=== PATIENT | male | born 1935 | race Caucasian/White ===

== ENCOUNTER 2020-02-19 13:55 | Inpatient (IN) | payer MEDICARE, OTHER ==
--- NOTE | 2020-02-19 15:15 | RAD ---
Exam: Chest one view HISTORY:COVID positive patient. Chest pain. Myocardial infarction. Comparison: 12/03/2016 FINDINGS: Cardiac silhouette:Cardiomegaly. Sternotomy wires. Aorta: Atherosclerosis. Pulmonary vessels: Normal Costophrenic angles: Small bilateral effusions, left greater than right LUNGS: Diminished lung volumes. Patchy interstitial and alveolar opacities. Pneumothorax: None Osseous abnormalities: None IMPRESSION: 1. Congestive heart failure. 2. Superimposed infiltrate cannot be excluded. Continued surveillance is recommended.
[2020-02-19 15:37] LABS: CKMB 5.7 ng/mL (0-6.6)
[2020-02-19 15:38] LABS: Actual Bicarbonate (HCO3a) 17.8 mEq/L (22-28); Analyzer IN Cardio ER; Base Excess (BEa) -7.5 mEq/L (-2.0 to +3.0); CO2 Tension 35.3 mmHg (35.0-45.0); Calcium, Ionized (arterial) 1.13 mmol/L (1.12-1.30); Hemoglobin (Hb) 11.7 g/dL (14.0-18.0); O2 Tension (PaO2), arterial 73.8 mmHg (> 60.0); pH, Arterial 7.32 (7.35-7.45)
[2020-02-19 15:39] LABS: ALV-art Gradient 138.755 (0-20); Puncture Site LRA
[2020-02-19 18:30] VITALS: BMI 29.4
[2020-02-19] MEDS ORDERED: Acetaminophen 325 MG TAB PO PRN (19:13)
[2020-02-19] MEDS ORDERED: Cholecalciferol 1,000 UNITS (25 MCG) TAB PO SCH (19:15)
[2020-02-19] MEDS ORDERED: Ascorbic Acid 500 mg Chewable Tablet PO SCH (19:15)
[2020-02-19] MEDS ORDERED: Melatonin 3 MG TAB PO PRN (19:40)
[2020-02-19] MEDS ORDERED: Albuterol 200 PUFF (6.7GM INHALER) INH PRN (19:41)
[2020-02-19] MEDS ORDERED: Zinc Sulfate 220 MG CAP PO SCH (19:45)
[2020-02-19 20:13] LABS: Troponin I 0.302 ng/mL (< 0.028)
[2020-02-19] MEDS ORDERED: Famotidine 20 MG TAB PO SCH (21:00)
[2020-02-19 21:02] LABS: #Lymphocytes 0.4 thou/uL (1.20-3.40); #Monocytes 0.3 thou/uL (0.11-0.59); #Neutrophils 5.1 thou/uL (1.40-6.50); %Basophils 0.5 % (0.0-1.0); %Lymphocytes 6.8 % (21.0-51.0); %Monocytes 4.7 % (0.0-10.0); %Neutrophils 88.1 % (42.0-75.0); Hemoglobin 11.2 g/dL (14.0-18.0); Mean Corpuscular HGB CONC 32.8 g/dL (32.0-36.0); Mean Corpuscular Hemoglobin 33.8 pg (27.0-31.0); Mean Platelet Volume 9.8 fL (7.4-10.4); Platelet Count 90 thou/uL (130-400); RBC Distribution Width 12.2 % (11.5-14.5); White Blood Cell (WBC) Count 5.8 thou/uL (4.8-10.8)
[2020-02-19 21:13] LABS: Lactic Acid 2.1 mmol/L (0.5-2.2)
[2020-02-19 21:19] LABS: ALT (SGPT) 18 U/L (8-55); AST (SGOT) 24 U/L (5-34); Albumin 3.1 g/dL (3.4-4.8); Alkaline Phosphatase 77 U/L (40-110); Anion Gap 14 mmol/L (10-20); BUN (Urea Nitrogen) 36 mg/dL (8.4-25.7); Bilirubin, Total 1.3 mg/dL (0.2-1.2); CRP (Inflammatory) 14.73 mg/dL (= or < 0.5); Calc. Creatinine Clearance 27 mL/min (70-130); Calcium 7.9 mg/dL (7.8-10.44); Carbon Dioxide 20 mmol/L (23-31); Chloride 104 mmol/L (98-107); Estimated GFR-MDRD 24; Globulin 3.5 g/dL (2.4-3.5); Glucose 158 mg/dL (83-110); Potassium 4.6 mmol/L (3.5-5.1); Protein, Total 6.6 g/dL (5.8-8.1)
[2020-02-19] MEDS: Azithromycin 500 MG in Sodium Chloride 0.9% 250 ML 250 ML IVPB SCH (21:28)
[2020-02-19] MEDS: Heparin 5,000 UNITS/ML VIAL SC SCH (21:28)
[2020-02-19 21:35] LABS: Sodium 133 mmol/L (136-145)
[2020-02-19 22:13] LABS: CKMB 8.1 ng/mL (0-6.6)
--- NOTE | 2020-02-19 22:51 | HP ---
PRIMARY CARE PHYSICIAN: Dr. Zuhair Bang. CHIEF COMPLAINT: Difficulty breathing. HISTORY OF PRESENT ILLNESS: The patient is a very pleasant 84-year-old male who comes from [facility]. Past medical history of chronic kidney disease stage 3, asthma, CAD, CHF, and COPD, who presents to the ER today for difficulty breathing. At his senior living, they have had multiple residents test positive for COVID-19. The patient was actually tested last week and was negative. Today, he was tested once again and was positive. He stated that he started with symptoms yesterday and felt a little short of breath, but today it worsened to where he needed to go to the hospital. He was originally seen at [facility] in [place] and then transferred here due to need for high-flow oxygen. He denies any chest pain, abdominal pain, diarrhea, fever. Denies any positional changes that make the breathing easier or harder. The patient was transferred to our emergency room when the need for oxygen increased. They were unable to do high-flow oxygen where he was. No medications were given in our ER. They were able to wean him off the high-flow oxygen to 4 L. In our ER, they completed a chest x-ray and some lab work. PAST MEDICAL HISTORY: AAA; aortic stenosis; arthritis; asthma; BPH; skin cancer, which was removed; CHF; chronic kidney disease stage 3; COPD; coronary artery disease; hypertension; iron-deficiency anemia; and osteoarthritis. PAST SURGICAL HISTORY: AAA repair, aortic valve replacement, cataracts, CABG, knee replacement, prostate biopsy, and TURP. ALLERGIES: TETANUS. MEDICATIONS: Symbicort 2 puffs twice a day, vitamin B12 at 1000 mcg IM q.60 days, DuoNeb 3 mL three times a day, Lasix 20 mg every 2 days, melatonin 4 mg at night, K-Dur 10 mEq every other day, simvastatin 20 mg at night, doxazosin mesylate 8 mg at night, calcium 600 mg p.o. b.i.d., aspirin 81 mg p.o. daily, Artificial Tears, vitamin B12 1000 mcg IM q.60 days, ferrous sulfate 325 mg p.o. daily, Proscar 5 mg p.o. at night, Protonix 40 mg p.o. daily. SOCIAL HISTORY: The patient lives at [facility]. He occasionally drinks alcohol. No drug use. He was a former smoker. He stopped smoking in 1984. FAMILY HISTORY: Father had a heart attack. REVIEW OF SYSTEMS: All other review of systems negative unless noted in HPI. PHYSICAL EXAMINATION: VITAL SIGNS: Blood pressure 163/73, temperature 98.2, pulse 77, respiratory rate 18, 99% on 4 L. GENERAL: Appears pain-free. Breathing comfortably on 4 L. HEENT: Head is normocephalic and atraumatic. Eyes, extraocular muscles intact. PERRLA. NECK: Normal range of motion. No lymphadenopathy. CARDIOVASCULAR: Regular rate and rhythm. No murmurs, no rubs, no gallops. PULMONARY: Diffuse wheezes. Symmetrical chest rise. ABDOMEN: Soft, nontender. No distention. No masses. NEUROLOGIC: Alert and oriented. SKIN: Warm, dry, and intact. PSYCHIATRIC: Normal affect and behavior. LABS AND IMAGING: Currently awaiting labs at our facility. EKG at previous facility showed sinus tachycardia with a right bundle branch block and first-degree block. Labs show a procalcitonin 0.84. D-dimer 6.07. BNP 398. Glucose 121, BUN 37, creatinine 2.41, sodium 136, potassium 4.4, calcium 8, CRP 140.1, troponin 0.24. White blood cell 6.9, hemoglobin 11.6, hematocrit 35.9, platelets 103. Chest x-ray showed multifocal pneumonia which would be consistent with a viral pneumonia. The patient at the first ER was given dexamethasone 6 mg IV, Bumex 0.5 mg IV, and Zosyn 4.5 g IV along with aspirin 324 mg and albuterol nebulizer treatment. IMPRESSION AND PLAN: 1. The patient has tested positive for COVID-19. He normally does not require oxygen, however, today, he had to be placed on high-flow and is now able to maintain his O2 saturation and comfort on 4 L. We will continue to monitor patient throughout the night. I have consulted Infectious Disease physician along with ordered his IV steroids for the next week along with zinc, vitamin C, and vitamin D. The patient also may have underlying bacterial agent with his viral pneumonia. We will start patient on azithromycin. 2. Hypertension. We will reconcile patient's medications and start him on his home medications. The patient with elevated troponin. We will consult Cardiology. He does not endorse any chest pain and states that his shortness of breath has resolved now with oxygen placement. The patient wishes to be a full code. He states that his surrogate decision makers will be his daughters, Inna and Rubio. 3. The patient has been discussed with Dr. Marcelino. Job ID: [id number]
[2020-02-20 05:07] LABS: #Lymphocytes 0.4 thou/uL (1.20-3.40); #Monocytes 0.3 thou/uL (0.11-0.59); #Neutrophils 3.3 thou/uL (1.40-6.50); %Eosinophils 0.1 % (0.0-10.0); %Lymphocytes 9.9 % (21.0-51.0); %Monocytes 6.8 % (0.0-10.0); %Neutrophils 82.4 % (42.0-75.0); Hemoglobin 10.1 g/dL (14.0-18.0); Mean Corpuscular HGB CONC 31.5 g/dL (32.0-36.0); Mean Corpuscular Hemoglobin 32.6 pg (27.0-31.0); Mean Platelet Volume 9.7 fL (7.4-10.4); Platelet Count 87 thou/uL (130-400); RBC Distribution Width 12.2 % (11.5-14.5); Red Blood Cell (RBC) Count 3.11 mill/uL (4.70-6.10)
[2020-02-20 05:23] LABS: Anion Gap 11 mmol/L (10-20); BUN (Urea Nitrogen) 40 mg/dL (8.4-25.7); Calc. Creatinine Clearance 29 mL/min (70-130); Calcium 7.9 mg/dL (7.8-10.44); Carbon Dioxide 23 mmol/L (23-31); Chloride 106 mmol/L (98-107); Estimated GFR-MDRD 25; Glucose 137 mg/dL (83-110); Potassium 4.8 mmol/L (3.5-5.1); Sodium 135 mmol/L (136-145)
[2020-02-20 07:13] LABS: Bacteria/HPF 4+ HPF (None Seen); Bilirubin Negative (Negative); Blood, Urine 1+ (Negative); Clarity Clear (Clear); Glucose, Urine (Dipstick) Normal (Negative); Ketone, Urine Negative (Negative); Leukocyte 75 Leu/uL (Negative); Nitrite Negative (Negative); Protein, Urine (Dipstick) 10 mg/dL (Neg-Trace); RBC/HPF 0-3 HPF (0-3); Squamous Epithelial 0-3 HPF (0-3); Urobilinogen Normal mg/dL (Less than 2)
[2020-02-20] MEDS: Heparin 5,000 UNITS/ML VIAL SC SCH ×3 (07:46→19:47)
--- NOTE | 2020-02-20 09:09 | CON ---
DATE OF CONSULTATION: 02/20/2020 REASON FOR CONSULTATION: Elevated troponin. HISTORY OF PRESENT ILLNESS: Mr. Montanez is a very pleasant 84-year-old gentleman who I have seen and evaluated in the past. He has a history of CAD, status bypass surgery in addition to TAVR in 2016. He recently tested positive for COVID. He had increased shortness of breath present. He denied chest pain, pressure. He initially required high-flow oxygen. He is now on a nasal cannula and resting comfortably. PAST MEDICAL HISTORY: As described above including chronic kidney disease, arthritis, asthma, skin cancer, congestive heart failure, hypertension, anemia, osteoarthritis, prostate biopsy, TURP. ALLERGIES: TETANUS. MEDICATIONS: Include 1. Symbicort. 2. Lasix. 3. Melatonin. 4. Simvastatin. 5. Aspirin. 6. Iron sulfate. 7. Proscar. 8. Protonix. SOCIAL HISTORY: Currently resides at [facility]. Former tobacco use. REVIEW OF SYSTEMS: A 10-point review of systems is reviewed and is as above, otherwise negative. PHYSICAL EXAMINATION: VITAL SIGNS: Blood pressure 166/72, pulse 81, temperature 97.3. Physical exam deferred due to COVID positive. GENERAL: He is alert and oriented. LABORATORY DATA: Hemoglobin 10.1, hematocrit 32.2, creatinine is 2.48. CK-MB of 8.1. Peak troponin 0.3 and downtrending to 0.2. IMPRESSION: 1. Elevated troponin. 2. COVID positive. 3. Coronary artery disease. 4. Status post bypass surgery. 5. Status post TAVR. RECOMMENDATIONS: Mr. Montanez does have a previous history of underlying coronary artery disease. He has a history of a SNIGER to the LAD with chronic occlusion of the distal LAD. Given his current situation, his elevated troponin is likely due to demand ischemia. He has no current symptoms suggesting angina or unstable angina. At this point, we will continue with current medical therapy. We would recommend monitoring his oxygen saturation in addition to blood pressure and heart rate. Recommend the following CV medications: 1. Simvastatin 20 at bedtime. 2. Aspirin 81 daily. 3. Due to history of asthma, I would recommend avoiding beta-felicita therapy. 4. I will continue heparin. Job ID: [id number]
[2020-02-20] MEDS: Cholecalciferol 1,000 UNITS (25 MCG) TAB PO SCH (09:47)
[2020-02-20] MEDS: Zinc Sulfate 220 MG CAP PO SCH (09:47)
[2020-02-20] MEDS: Aspirin 81 mg Enteric Coated Tablet PO SCH (09:47)
[2020-02-20] MEDS: Ascorbic Acid 500 mg Chewable Tablet PO SCH (09:48)
[2020-02-20] MEDS: Dexamethasone 4 mg/ml Vial SLOW IVP SCH (09:48)
[2020-02-20 11:59] LABS: SARS-CoV-2 MS2 Positive; SARS-CoV-2 N Gene Positive; SARS-CoV-2 S Gene Positive; SARS-CoV-2 by NAA DETECTED (NotDetected); SARS-CoV-2 orf1ab Positive
--- NOTE | 2020-02-20 12:24 | PDOC.HOSPP ---
- Subjective Encounter Date: 02/20/20 Encounter Time: 09:40 Subjective: sitting on bed says he feels better than yesterday no chest pain or palp - Objective Vital Signs & Weight: Vital Signs (12 hours) Temp Pulse Resp BP Pulse Ox 02/20/20 11:40 97.9 F 68 18 126/60 98 02/20/20 09:49 97.7 F 71 20 131/63 93 L 02/20/20 03:28 97.3 F L 81 19 166/72 H 95 Weight Weight 205 lb 4.8 oz I&O: 02/19/20 02/20/20 02/21/20 06:59 06:59 06:59 Intake Total 490 Output Total 675 Balance -185 Result Diagrams: 02/20/20 04:43 02/20/20 04:43 Hospitalist ROS - Medication Medications: Active Medications Generic Name Dose Route Start Last Admin Trade Name Willamq PRN Reason Stop Dose Admin Ascorbic Acid 1,000 mg 02/20/20 09:00 02/20/20 09:48 Vitamin C PO 1,000 mg DAILY TOSHIA Administration Aspirin 81 mg 02/20/20 09:00 02/20/20 09:47 Ecotrin PO 81 mg DAILY TOSHIA Administration Cholecalciferol 1,000 units 02/20/20 09:00 02/20/20 09:47 Vitamin D3 PO 1,000 units DAILY TOSHIA Administration Dexamethasone 6 mg 02/20/20 09:00 02/20/20 09:48 Decadron SLOW IVP 02/28/20 09:01 6 mg DAILY TOSHIA Administration Heparin Sodium (Porcine) 5,000 units 02/19/20 21:00 02/20/20 07:46 Heparin SC Not Given TID TOSHIA Azithromycin 500 mg/ Sodium 250 mls @ 250 mls/hr 02/19/20 20:00 02/19/20 21: 28 Chloride IVPB 250 mls Q24HR TOSHIA Administration Sodium Chloride 10 ml 02/20/20 09:00 02/20/20 09:49 Flush - Normal Saline IVF 10 ml Q12HR TOSHIA Administration Zinc Sulfate 220 mg 02/20/20 09:00 02/20/20 09:47 Zinc Sulfate PO 220 mg DAILY TOSHIA Administration - Exam General Appearance: awake alert Eye: PERRL, anicteric sclera ENT: no oropharyngeal lesions, moist mucosa Neck: supple, no JVD Heart: RRR, no murmur Respiratory: no wheezes, rales, rhonchi Gastrointestinal: soft, non-tender, non-distended, normal bowel sounds Extremities: no cyanosis, 1+ LE edema Neurological: cranial nerve grossly intact, no focal deficits Psychiatric: normal affect, A&O x 3 Hosp A/P (1) Pneumonia due to COVID-19 virus Code(s): U07.1 - COVID-19; J12.89 - OTHER VIRAL PNEUMONIA Status: Acute (2) h/o tavr Status: Chronic (3) H/O aortic valve replacement with porcine valve Code(s): Z95.3 - PRESENCE OF XENOGENIC HEART VALVE Status: Chronic (4) COPD (chronic obstructive pulmonary disease) Status: Chronic Qualifiers: COPD type: chronic bronchitis (5) BPH (benign prostatic hyperplasia) Code(s): N40.0 - BENIGN PROSTATIC HYPERPLASIA WITHOUT LOWER URINRY TRACT SYMP Status: Chronic Qualifiers: Lower urinary tract symptom presence: symptoms absent Qualified Code(s): N40.0 - Benign prostatic hyperplasia without lower urinary tract symptoms (6) CAD (coronary artery disease) Code(s): I25.10 - ATHSCL HEART DISEASE OF [place] CORONARY ARTERY W/O ANG PCTRS Status: Chronic Qualifiers: Coronary Disease-Associated Artery/Lesion type: bypass graft [place] vs. transplanted heart: [place] heart Associated angina: without angina Qualified Code(s): I25.810 - Atherosclerosis of coronary artery bypass graft(s) without angina pectoris (7) CKD (chronic kidney disease) stage 4, GFR 15-29 ml/min Code(s): N18.4 - CHRONIC KIDNEY DISEASE, STAGE 4 (SEVERE) Status: Chronic (8) HLD (hyperlipidemia) Code(s): E78.5 - HYPERLIPIDEMIA, UNSPECIFIED Status: Chronic Qualifiers: (9) HTN (hypertension) Code(s): I10 - ESSENTIAL (PRIMARY) HYPERTENSION Status: Chronic Qualifiers: (10) History of AAA (abdominal aortic aneurysm) repair Code(s): Z98.890 - OTHER SPECIFIED POSTPROCEDURAL STATES Status: Chronic - Plan is on nasal canula, dexamethasone iv, nebs await ID consult continue other meds as above to mobilize in room as tolerated not sure if he is a candidate for plasma given his age and multiple med issues. hemostable
[2020-02-20] MEDS ORDERED: Furosemide 40 MG/4 ML VIAL SLOW IVP SCH (12:30)
--- NOTE | 2020-02-20 15:33 | CON ---
DATE OF CONSULTATION: 02/20/2020 REASON FOR CONSULTATION: COVID pneumonia. HISTORY OF PRESENT ILLNESS: An 84-year-old with history of COPD, osteoarthritis, cardiomyopathy, and hypertension, who developed worsening dyspnea over the past 2 days. He states that he lives in an assisted living institution and apparently multiple residents have tested positive. He had an initial negative test a week before and was tested again positive on the day of admission. The symptoms developed the day before admission and he had blood pressure of 160/70, temperature 98.2, pulse 77, and respirations 18 with 99% on 4 L. He had diffuse wheezing bilaterally, otherwise the exam was not remarkable. Other findings are white cell count 5.8, hemoglobin 11, platelets 90,000, 88% neutrophils, and lymphocytes 400. D-dimer 8.3. A pH of 7.32, pCO2 of 35, and pO2 of 73. His creatinine ranges usually in the baseline from 2.2 up to 3.5, so he is at his baseline at 2.6. Bilirubin 1.3 and transaminases normal. Troponin 0.2. CRP 14. Albumin 3.1. BNP 708. Urinalysis with 7 to 10 wbc's. COVID positive. Chest x-ray with bilateral infiltrates, but mostly the findings consistent with CHF. He is currently on 4 L and saturating at 98. He is awake, sitting on the bed. He is oriented. No headaches. No sore throat. Dyspnea has improved markedly since admission. No abdominal pain or diarrhea. No genitourinary symptoms. No vomiting. Some anorexia. MEDICAL HISTORY: 1. Aortic stenosis. 2. Abdominal aortic aneurysm. 3. Arthritis. 4. Asthma. 5. BPH. 6. COPD. 7. CKD, stage 3 to 4. 8. Hypertension. 9. Coronary artery disease. SURGICAL HISTORY: 1. AAA repair. 2. Aortic valve replacement. 3. Bypass graft surgery. 4. Knee replacement. 5. Prostate biopsy. 6. TURP. ALLERGIES: TETANUS VACCINE. SOCIAL HISTORY: Lives in the assisted living facility, [facility]. Drinks occasionally. No drug use. Quit smoking more than 30 years ago. He is a . FAMILY HISTORY: Coronary artery disease. PHYSICAL EXAMINATION: VITAL SIGNS: At the moment, we have temperature 97.9, blood pressure 120/60, pulse 68, respirations 18 to 20, and O2 saturation 98 on 4 L. SKIN: Not remarkable. Peripheral IV access. He is voiding in the urinal. No lymphadenopathy. HEENT: Ocular movements conjugate. Oral cavity with a very few remaining teeth. NECK: No jugular vein distention. LUNGS: Expiratory wheezing, particularly on the right side, and diminished breath sounds on the left. HEART: S1 and S2. Regular rate with a soft aortic murmur. ABDOMEN: Soft, not distended or tender. No ascites. No bladder distention. EXTREMITIES: No joint inflammatory activity. No edema. Pulses 1+ in dorsalis pedis. Moves all extremities. NEUROLOGIC: He is oriented. Follows commands. Recollection good. Speech is normal. LABORATORY DATA: Latest labs: White cell count 4.0, hemoglobin 10, platelets 87, and 82% neutrophils. Creatinine 2.48. He is currently on azithromycin and Decadron. ASSESSMENT: 1. Chronic obstructive pulmonary disease. 2. Cardiomyopathy. 3. COVID infection with requirement for high level of O2 supplementation. PLAN: We will go ahead and write for convalescent plasma since he is not eligible for remdesivir. Continue Decadron. Monitor inflammatory markers and D-dimer. Heparin t.i.d. Job ID: [id number]
[2020-02-20] MEDS: Mometasone 200 MCG/Formoterol 5 MCG 120 PUFF INHALER INH SCH (18:27)
[2020-02-20] MEDS ORDERED: Non-Formulary Item 1 EACH (Budesonide-Formoterol [Symbicort 160-4.5] 2 PUFF) INH SCH (18:30)
[2020-02-20] MEDS: Azithromycin 500 MG in Sodium Chloride 0.9% 250 ML 250 ML IVPB SCH (19:47)
[2020-02-20] MEDS: Melatonin 3 MG TAB PO SCH (19:48)
[2020-02-20] MEDS: Finasteride 5 MG TAB PO SCH (19:48)
[2020-02-20] MEDS: Doxazosin Mesylate 4 MG TAB PO SCH (19:48)
[2020-02-20] MEDS: Atorvastatin Calcium 10 MG TAB PO SCH (19:48)
[2020-02-20] MEDS: Montelukast Sodium 10 mg Tablet PO SCH (19:48)
[2020-02-20] MEDS ORDERED: Famotidine 20 MG TAB PO SCH (21:00)
[2020-02-20] MEDS ORDERED: Simvastatin 20 MG TAB PO SCH ×2 (21:00)
[2020-02-20] MEDS ORDERED: DOXAZOSIN MESYLATE 8 MG PO SCH (21:00)
[2020-02-21 05:41] LABS: #Lymphocytes 0.4 thou/uL (1.20-3.40); #Monocytes 0.2 thou/uL (0.11-0.59); #Neutrophils 3.3 thou/uL (1.40-6.50); %Basophils 0.1 % (0.0-1.0); %Lymphocytes 11.2 % (21.0-51.0); %Monocytes 4.7 % (0.0-10.0); Hemoglobin 9.8 g/dL (14.0-18.0); Mean Corpuscular HGB CONC 32.3 g/dL (32.0-36.0); Mean Corpuscular Hemoglobin 33.5 pg (27.0-31.0); Mean Platelet Volume 9.7 fL (7.4-10.4); Platelet Count 107 thou/uL (130-400); RBC Distribution Width 12.2 % (11.5-14.5); Red Blood Cell (RBC) Count 2.93 mill/uL (4.70-6.10); White Blood Cell (WBC) Count 3.9 thou/uL (4.8-10.8)
[2020-02-21] MEDS: Mometasone 200 MCG/Formoterol 5 MCG 120 PUFF INHALER INH SCH ×2 (05:53→17:33)
[2020-02-21 06:00] LABS: Anion Gap 14 mmol/L (10-20); BUN (Urea Nitrogen) 53 mg/dL (8.4-25.7); Calc. Creatinine Clearance 27 mL/min (70-130); Calcium 7.8 mg/dL (7.8-10.44); Carbon Dioxide 23 mmol/L (23-31); Chloride 104 mmol/L (98-107); Estimated GFR-MDRD 23; Glucose 129 mg/dL (83-110); Potassium 4.6 mmol/L (3.5-5.1); Sodium 136 mmol/L (136-145)
[2020-02-21 06:02] LABS: CRP (Inflammatory) 9.08 mg/dL (= or < 0.5)
[2020-02-21] MEDS: Zinc Sulfate 220 MG CAP PO SCH (07:29)
[2020-02-21] MEDS: Aspirin 81 mg Enteric Coated Tablet PO SCH (07:29)
[2020-02-21] MEDS: Cholecalciferol 1,000 UNITS (25 MCG) TAB PO SCH (07:29)
[2020-02-21] MEDS: Ascorbic Acid 500 mg Chewable Tablet PO SCH (07:30)
[2020-02-21] MEDS: Ferrous Sulfate 325 MG TAB PO SCH (07:30)
[2020-02-21] MEDS: Dexamethasone 4 mg/ml Vial SLOW IVP SCH (07:30)
[2020-02-21] MEDS: Heparin 5,000 UNITS/ML VIAL SC SCH ×2 (07:31→20:51)
[2020-02-21] MEDS ORDERED: Non-Formulary Item 1 EACH (Ferrous Sulfate [Ferrous Sulfate] 325 MG) PO SCH (09:00)
[2020-02-21] MEDS ORDERED: Furosemide 20 MG TAB PO SCH (09:00)
--- NOTE | 2020-02-21 11:42 | PDOC.HOSPP ---
- Subjective Encounter Date: 02/21/20 Encounter Time: 10:10 Subjective: awake, no sob, feels better is on higher Oxygen 5L by NC this am - Objective Vital Signs & Weight: Vital Signs (12 hours) Temp Pulse Pulse Resp BP BP BP 02/21/20 07:40 97.7 F 85 20 133/58 L 02/21/20 05:43 97.6 F 66 21 H 119/58 L 02/21/20 05:28 97.6 F 68 20 128/60 02/21/20 05:13 97.6 F 71 22 H 118/63 02/21/20 04:10 97.6 F 84 24 H 145/70 H Pulse Ox 02/21/20 07:40 91 L 02/21/20 05:43 100 02/21/20 05:28 02/21/20 05:13 02/21/20 04:10 93 L Weight Weight 205 lb 4.8 oz I&O: 02/20/20 02/21/20 02/22/20 06:59 06:59 06:59 Intake Total 490 1360 Output Total 675 700 Balance -185 660 Result Diagrams: 02/21/20 05:03 02/21/20 05:03 Hospitalist ROS - Medication Medications: Active Medications Generic Name Dose Route Start Last Admin Trade Name Willamq PRN Reason Stop Dose Admin Aspirin 81 mg 02/20/20 09:00 02/21/20 07:29 Ecotrin PO 81 mg DAILY TOSHIA Administration Atorvastatin Calcium 10 mg 02/20/20 21:00 02/20/20 19:48 Lipitor PO 10 mg HS TOSHIA Administration Dexamethasone 6 mg 02/20/20 09:00 02/21/20 07:30 Decadron SLOW IVP 02/28/20 09:01 6 mg DAILY TOSHIA Administration Doxazosin Mesylate 8 mg 02/20/20 21:00 02/20/20 19:48 Cardura PO 8 mg HS TOSHIA Administration Ferrous Sulfate 325 mg 02/21/20 09:00 02/21/20 07:30 Feosol PO 325 mg DAILY TOSHIA Administration Finasteride 5 mg 02/20/20 21:00 02/20/20 19:48 Proscar PO 5 mg HS TOSHIA Administration Heparin Sodium (Porcine) 5,000 units 02/20/20 21:00 02/21/20 07:31 Heparin SC 5,000 units BID TOSHIA Administration Melatonin 3 mg 02/20/20 21:00 02/20/20 19:48 Melatonin PO 3 mg HS TOSHIA Administration Mometasone Furoate/Formoterol Fumar 2 puff 02/20/20 18:30 02/21/20 05:53 Dulera 200 Mcg/5 Mcg Inhaler INH 2 puff BID-RT TOSHIA Administration Montelukast Sodium 10 mg 02/20/20 21:00 02/20/20 19:48 Singulair PO 10 mg HS TOSHIA Administration Pantoprazole Sodium 40 mg 02/21/20 07:30 02/21/20 07:30 Protonix PO 40 mg DAILY-AC TOSHIA Administration Sodium Chloride 10 ml 02/20/20 09:00 02/21/20 07:31 Flush - Normal Saline IVF 10 ml Q12HR TOSHIA Administration - Exam General Appearance: awake alert Eye: PERRL, anicteric sclera ENT: no oropharyngeal lesions, moist mucosa Neck: supple, no JVD Heart: RRR, no murmur Respiratory: no wheezes, rales, rhonchi Gastrointestinal: soft, non-tender, non-distended, normal bowel sounds Extremities: no cyanosis, 1+ LE edema Neurological: cranial nerve grossly intact, no focal deficits Psychiatric: normal affect, A&O x 3 Hosp A/P (1) Pneumonia due to COVID-19 virus Code(s): U07.1 - COVID-19; J12.89 - OTHER VIRAL PNEUMONIA Status: Acute (2) h/o tavr Status: Chronic (3) H/O aortic valve replacement with porcine valve Code(s): Z95.3 - PRESENCE OF XENOGENIC HEART VALVE Status: Chronic (4) COPD (chronic obstructive pulmonary disease) Status: Chronic Qualifiers: COPD type: chronic bronchitis (5) BPH (benign prostatic hyperplasia) Code(s): N40.0 - BENIGN PROSTATIC HYPERPLASIA WITHOUT LOWER URINRY TRACT SYMP Status: Chronic Qualifiers: Lower urinary tract symptom presence: symptoms absent Qualified Code(s): N40.0 - Benign prostatic hyperplasia without lower urinary tract symptoms (6) CAD (coronary artery disease) Code(s): I25.10 - ATHSCL HEART DISEASE OF [place] CORONARY ARTERY W/O ANG PCTRS Status: Chronic Qualifiers: Coronary Disease-Associated Artery/Lesion type: bypass graft [place] vs. transplanted heart: [place] heart Associated angina: without angina Qualified Code(s): I25.810 - Atherosclerosis of coronary artery bypass graft(s) without angina pectoris (7) CKD (chronic kidney disease) stage 4, GFR 15-29 ml/min Code(s): N18.4 - CHRONIC KIDNEY DISEASE, STAGE 4 (SEVERE) Status: Chronic (8) HLD (hyperlipidemia) Code(s): E78.5 - HYPERLIPIDEMIA, UNSPECIFIED Status: Chronic Qualifiers: (9) HTN (hypertension) Code(s): I10 - ESSENTIAL (PRIMARY) HYPERTENSION Status: Chronic Qualifiers: (10) History of AAA (abdominal aortic aneurysm) repair Code(s): Z98.890 - OTHER SPECIFIED POSTPROCEDURAL STATES Status: Chronic - Plan is on nasal canula, dexamethasone iv, nebs, recieved 1 u of convalescent plasma 02/20/2020 has h/o nephrectomy, now gilson/ckd, mild chf exac with diastolic dysfunction continue other meds as above to mobilize in room as tolerated, PT eval d/w daughter over phone and gave full updates hemostable His Oxygen requirements have gone up, he got 1 dose lasix iv yest with slight worsoning of renal function. continue to monitor
[2020-02-21] MEDS: Doxazosin Mesylate 4 MG TAB PO SCH (20:50)
[2020-02-21] MEDS: Finasteride 5 MG TAB PO SCH (20:51)
[2020-02-21] MEDS: Melatonin 3 MG TAB PO SCH (20:51)
[2020-02-21] MEDS: Montelukast Sodium 10 mg Tablet PO SCH (20:51)
[2020-02-21] MEDS: Atorvastatin Calcium 10 MG TAB PO SCH (20:51)
[2020-02-22 05:31] LABS: #Lymphocytes 0.5 thou/uL (1.20-3.40); #Monocytes 0.3 thou/uL (0.11-0.59); #Neutrophils 3.2 thou/uL (1.40-6.50); %Basophils 1.1 % (0.0-1.0); %Eosinophils 0.3 % (0.0-10.0); %Lymphocytes 12.9 % (21.0-51.0); %Monocytes 6.3 % (0.0-10.0); %Neutrophils 79.5 % (42.0-75.0); Hemoglobin 9.2 g/dL (14.0-18.0); Mean Corpuscular HGB CONC 33.1 g/dL (32.0-36.0); Mean Corpuscular Hemoglobin 33.8 pg (27.0-31.0); Mean Platelet Volume 9.8 fL (7.4-10.4); Platelet Count 106 thou/uL (130-400); RBC Distribution Width 12.1 % (11.5-14.5); Red Blood Cell (RBC) Count 2.71 mill/uL (4.70-6.10)
[2020-02-22] MEDS: Mometasone 200 MCG/Formoterol 5 MCG 120 PUFF INHALER INH SCH ×2 (05:36→17:13)
[2020-02-22 05:50] LABS: Anion Gap 11 mmol/L (10-20); BUN (Urea Nitrogen) 65 mg/dL (8.4-25.7); Calc. Creatinine Clearance 27 mL/min (70-130); Calcium 7.8 mg/dL (7.8-10.44); Carbon Dioxide 25 mmol/L (23-31); Chloride 107 mmol/L (98-107); Estimated GFR-MDRD 23; Glucose 143 mg/dL (83-110); Potassium 4.6 mmol/L (3.5-5.1); Sodium 138 mmol/L (136-145)
[2020-02-22] MEDS: Ferrous Sulfate 325 MG TAB PO SCH (08:36)
[2020-02-22] MEDS: Heparin 5,000 UNITS/ML VIAL SC SCH ×2 (08:36→20:03)
[2020-02-22] MEDS: Aspirin 81 mg Enteric Coated Tablet PO SCH (08:36)
[2020-02-22] MEDS: Dexamethasone 4 mg/ml Vial SLOW IVP SCH (08:37)
--- NOTE | 2020-02-22 10:08 | PDOC.HOSPP ---
- Subjective Encounter Date: 02/22/20 Encounter Time: 08:30 Subjective: awake, has cough, no sob, is on nasal canula - Objective Vital Signs & Weight: Vital Signs (12 hours) Temp Pulse Resp BP BP Pulse Ox 02/22/20 08:00 98.9 F 64 22 H 136/76 93 L 02/22/20 05:41 98.0 F 66 20 125/60 97 Weight Weight 205 lb 6.4 oz I&O: 02/21/20 02/22/20 02/23/20 06:59 06:59 06:59 Intake Total 1360 970 Output Total 700 100 Balance 660 870 Result Diagrams: 02/22/20 05:18 02/22/20 05:18 Hospitalist ROS - Medication Medications: Active Medications Generic Name Dose Route Start Last Admin Trade Name Freq PRN Reason Stop Dose Admin Aspirin 81 mg 02/20/20 09:00 02/22/20 08:36 Ecotrin PO 81 mg DAILY TOSHIA Administration Atorvastatin Calcium 10 mg 02/20/20 21:00 02/21/20 20:51 Lipitor PO 10 mg HS TOSHIA Administration Dexamethasone 6 mg 02/20/20 09:00 02/22/20 08:37 Decadron SLOW IVP 02/28/20 09:01 6 mg DAILY TOSHIA Administration Doxazosin Mesylate 8 mg 02/20/20 21:00 02/21/20 20:50 Cardura PO 8 mg HS TOSHIA Administration Ferrous Sulfate 325 mg 02/21/20 09:00 02/22/20 08:36 Feosol PO 325 mg DAILY TOSHIA Administration Finasteride 5 mg 02/20/20 21:00 02/21/20 20:51 Proscar PO 5 mg HS TOSHIA Administration Heparin Sodium (Porcine) 5,000 units 02/20/20 21:00 02/22/20 08:36 Heparin SC 5,000 units BID TOSHIA Administration Melatonin 3 mg 02/20/20 21:00 02/21/20 20:51 Melatonin PO 3 mg HS TOSHIA Administration Mometasone Furoate/Formoterol Fumar 2 puff 02/20/20 18:30 02/22/20 05:36 Dulera 200 Mcg/5 Mcg Inhaler INH 2 puff BID-RT TOSHIA Administration Montelukast Sodium 10 mg 02/20/20 21:00 02/21/20 20:51 Singulair PO 10 mg HS TOSHIA Administration Pantoprazole Sodium 40 mg 02/21/20 07:30 02/22/20 08:36 Protonix PO 40 mg DAILY-AC TOSHIA Administration Sodium Chloride 10 ml 02/20/20 09:00 02/22/20 09:10 Flush - Normal Saline IVF 10 ml Q12HR TOSHIA Administration - Exam General Appearance: awake alert, ill appearing Eye: PERRL, anicteric sclera ENT: no oropharyngeal lesions, dry oral mucosa Neck: supple, no JVD Heart: RRR, no murmur Respiratory: no wheezes, rales, rhonchi Gastrointestinal: soft, non-tender, non-distended, normal bowel sounds Extremities: no cyanosis, 1+ LE edema Neurological: cranial nerve grossly intact, no focal deficits Psychiatric: A&O x 3 Hosp A/P (1) Acute respiratory failure with hypoxia Code(s): J96.01 - ACUTE RESPIRATORY FAILURE WITH HYPOXIA Status: Acute (2) Pneumonia due to COVID-19 virus Code(s): U07.1 - COVID-19; J12.89 - OTHER VIRAL PNEUMONIA Status: Acute (3) h/o tavr Status: Chronic (4) H/O aortic valve replacement with porcine valve Code(s): Z95.3 - PRESENCE OF XENOGENIC HEART VALVE Status: Chronic (5) COPD (chronic obstructive pulmonary disease) Status: Chronic Qualifiers: COPD type: chronic bronchitis (6) BPH (benign prostatic hyperplasia) Code(s): N40.0 - BENIGN PROSTATIC HYPERPLASIA WITHOUT LOWER URINRY TRACT SYMP Status: Chronic Qualifiers: Lower urinary tract symptom presence: symptoms absent Qualified Code(s): N40.0 - Benign prostatic hyperplasia without lower urinary tract symptoms (7) CAD (coronary artery disease) Code(s): I25.10 - ATHSCL HEART DISEASE OF [place] CORONARY ARTERY W/O ANG PCTRS Status: Chronic Qualifiers: Coronary Disease-Associated Artery/Lesion type: bypass graft [place] vs. transplanted heart: [place] heart Associated angina: without angina Qualified Code(s): I25.810 - Atherosclerosis of coronary artery bypass graft(s) without angina pectoris (8) CKD (chronic kidney disease) stage 4, GFR 15-29 ml/min Code(s): N18.4 - CHRONIC KIDNEY DISEASE, STAGE 4 (SEVERE) Status: Chronic (9) HLD (hyperlipidemia) Code(s): E78.5 - HYPERLIPIDEMIA, UNSPECIFIED Status: Chronic Qualifiers: (10) HTN (hypertension) Code(s): I10 - ESSENTIAL (PRIMARY) HYPERTENSION Status: Chronic Qualifiers: (11) History of AAA (abdominal aortic aneurysm) repair Code(s): Z98.890 - OTHER SPECIFIED POSTPROCEDURAL STATES Status: Chronic - Plan is on nasal canula, dexamethasone iv, nebs, recieved 1 u of convalescent plasma 02/20/2020 has h/o nephrectomy, now gilson/ckd, mild chf exac with diastolic dysfunction continue other meds as above to mobilize in room as tolerated, PT eval d/w daughter over phone and gave full updates 02/21/2020 hemostable His Oxygen requirements have gone up, he got 1 dose lasix iv on 02/20/2020 with slight worsoning of renal function. continue to monitor PT to mobilize as tolerated
[2020-02-22] MEDS: Doxazosin Mesylate 4 MG TAB PO SCH (20:02)
[2020-02-22] MEDS: Finasteride 5 MG TAB PO SCH (20:02)
[2020-02-22] MEDS: Melatonin 3 MG TAB PO SCH (20:03)
[2020-02-22] MEDS: Montelukast Sodium 10 mg Tablet PO SCH (20:03)
[2020-02-22] MEDS: Atorvastatin Calcium 10 MG TAB PO SCH (20:03)
[2020-02-23] MEDS: Mometasone 200 MCG/Formoterol 5 MCG 120 PUFF INHALER INH SCH ×2 (07:38→18:06)
[2020-02-23] MEDS: Dexamethasone 4 mg/ml Vial SLOW IVP SCH (07:53)
[2020-02-23] MEDS: Aspirin 81 mg Enteric Coated Tablet PO SCH (07:53)
[2020-02-23] MEDS: Heparin 5,000 UNITS/ML VIAL SC SCH ×2 (07:56→19:46)
[2020-02-23] MEDS: Ferrous Sulfate 325 MG TAB PO SCH (07:56)
--- NOTE | 2020-02-23 14:25 | PDOC.HOSPP ---
- Subjective Encounter Date: 02/23/20 Encounter Time: 09:45 Subjective: no sob, feels better, is on nasal canula 2 lts now mobilizes in room has worked with PT and amb around 20ft, feels exhausted after therapy - Objective Vital Signs & Weight: Vital Signs (12 hours) Temp Pulse Resp BP BP Pulse Ox Pulse Ox 02/23/20 11:25 97.9 F 65 20 153/65 H 98 02/23/20 10:14 89 L 02/23/20 08:07 97.9 F 68 20 148/63 H 95 02/23/20 07:38 70 20 95 02/23/20 04:34 92 L 02/23/20 04:00 98.7 F 70 22 H 122/57 L 20 L Pulse Ox Pulse Ox 02/23/20 11:25 02/23/20 10:14 97 95 02/23/20 08:07 02/23/20 07:38 02/23/20 04:34 02/23/20 04:00 Weight Weight 204 lb 1 oz I&O: 02/22/20 02/23/20 02/24/20 06:59 06:59 06:59 Intake Total 970 1247 Output Total 100 440 Balance 870 807 Result Diagrams: 02/22/20 05:18 02/22/20 05:18 Hospitalist ROS - Medication Medications: Active Medications Generic Name Dose Route Start Last Admin Trade Name Siria PRN Reason Stop Dose Admin Aspirin 81 mg 02/20/20 09:00 02/23/20 07:53 Ecotrin PO 81 mg DAILY TOSHIA Administration Atorvastatin Calcium 10 mg 02/20/20 21:00 02/22/20 20:03 Lipitor PO 10 mg HS TOSHIA Administration Dexamethasone 6 mg 02/20/20 09:00 02/23/20 07:53 Decadron SLOW IVP 02/28/20 09:01 6 mg DAILY TOSHIA Administration Doxazosin Mesylate 8 mg 02/20/20 21:00 02/22/20 20:02 Cardura PO 8 mg HS TOSHIA Administration Ferrous Sulfate 325 mg 02/21/20 09:00 02/23/20 07:56 Feosol PO 325 mg DAILY TOSHIA Administration Finasteride 5 mg 02/20/20 21:00 02/22/20 20:02 Proscar PO 5 mg HS TOSHIA Administration Heparin Sodium (Porcine) 5,000 units 02/20/20 21:00 02/23/20 07:56 Heparin SC 5,000 units BID TOSHIA Administration Melatonin 3 mg 02/20/20 21:00 02/22/20 20:03 Melatonin PO 3 mg HS TOSHIA Administration Mometasone Furoate/Formoterol Fumar 2 puff 02/20/20 18:30 02/23/20 07:38 Dulera 200 Mcg/5 Mcg Inhaler INH 2 puff BID-RT TOSHIA Administration Montelukast Sodium 10 mg 02/20/20 21:00 02/22/20 20:03 Singulair PO 10 mg HS TOSHIA Administration Pantoprazole Sodium 40 mg 02/21/20 07:30 02/23/20 07:53 Protonix PO 40 mg DAILY-AC TOSHIA Administration Sodium Chloride 10 ml 02/20/20 09:00 02/23/20 07:58 Flush - Normal Saline IVF 10 ml Q12HR TOSHIA Administration - Exam General Appearance: awake alert Eye: PERRL, anicteric sclera ENT: no oropharyngeal lesions, moist mucosa Neck: supple, no JVD Heart: RRR, no gallops Respiratory: no wheezes, rales, rhonchi Gastrointestinal: soft, non-tender, non-distended, normal bowel sounds Extremities: no cyanosis, 1+ LE edema Neurological: cranial nerve grossly intact, no focal deficits Hosp A/P (1) Acute respiratory failure with hypoxia Code(s): J96.01 - ACUTE RESPIRATORY FAILURE WITH HYPOXIA Status: Acute (2) Pneumonia due to COVID-19 virus Code(s): U07.1 - COVID-19; J12.89 - OTHER VIRAL PNEUMONIA Status: Acute (3) h/o tavr Status: Chronic (4) H/O aortic valve replacement with porcine valve Code(s): Z95.3 - PRESENCE OF XENOGENIC HEART VALVE Status: Chronic (5) COPD (chronic obstructive pulmonary disease) Status: Chronic Qualifiers: COPD type: chronic bronchitis (6) BPH (benign prostatic hyperplasia) Code(s): N40.0 - BENIGN PROSTATIC HYPERPLASIA WITHOUT LOWER URINRY TRACT SYMP Status: Chronic Qualifiers: Lower urinary tract symptom presence: symptoms absent Qualified Code(s): N40.0 - Benign prostatic hyperplasia without lower urinary tract symptoms (7) CAD (coronary artery disease) Code(s): I25.10 - ATHSCL HEART DISEASE OF [place] CORONARY ARTERY W/O ANG PCTRS Status: Chronic Qualifiers: Coronary Disease-Associated Artery/Lesion type: bypass graft [place] vs. transplanted heart: [place] heart Associated angina: without angina Qualified Code(s): I25.810 - Atherosclerosis of coronary artery bypass graft(s) without angina pectoris (8) CKD (chronic kidney disease) stage 4, GFR 15-29 ml/min Code(s): N18.4 - CHRONIC KIDNEY DISEASE, STAGE 4 (SEVERE) Status: Chronic (9) HLD (hyperlipidemia) Code(s): E78.5 - HYPERLIPIDEMIA, UNSPECIFIED Status: Chronic Qualifiers: (10) HTN (hypertension) Code(s): I10 - ESSENTIAL (PRIMARY) HYPERTENSION Status: Chronic Qualifiers: (11) History of AAA (abdominal aortic aneurysm) repair Code(s): Z98.890 - OTHER SPECIFIED POSTPROCEDURAL STATES Status: Chronic - Plan is on nasal canula, dexamethasone iv, nebs, recieved 1 u of convalescent plasma 02/20/2020 has h/o nephrectomy, now gilson/ckd, mild chf exac with diastolic dysfunction continue other meds as above to mobilize in room as tolerated d/w daughter over phone and gave full updates 02/23/2020, [facility] with Covid patients. hemostable He got 1 dose lasix iv on 02/20/2020 with slight worsoning of renal function. continue to monitor PT to mobilize as tolerated May dc anytime if rehab or swing bed will accept him.
[2020-02-23] MEDS: Montelukast Sodium 10 mg Tablet PO SCH (19:45)
[2020-02-23] MEDS: Doxazosin Mesylate 4 MG TAB PO SCH (19:45)
[2020-02-23] MEDS: Melatonin 3 MG TAB PO SCH (19:45)
[2020-02-23] MEDS: Atorvastatin Calcium 10 MG TAB PO SCH (19:45)
[2020-02-23] MEDS: Finasteride 5 MG TAB PO SCH (19:46)
[2020-02-24] MEDS: Aspirin 81 mg Enteric Coated Tablet PO SCH (08:51)
[2020-02-24] MEDS: Heparin 5,000 UNITS/ML VIAL SC SCH ×2 (08:51→20:06)
[2020-02-24] MEDS: Ferrous Sulfate 325 MG TAB PO SCH (08:51)
[2020-02-24] MEDS: Dexamethasone 4 mg/ml Vial SLOW IVP SCH (08:51)
[2020-02-24] MEDS: Mometasone 200 MCG/Formoterol 5 MCG 120 PUFF INHALER INH SCH ×2 (08:53→17:50)
--- NOTE | 2020-02-24 12:34 | PDOC.HOSPP ---
- Subjective Encounter Date: 02/24/20 Encounter Time: 10:00 Subjective: alert, awake, responds well to verbal stimuli has sob, spo2 is 94% on 2 lts nasal canula no chest pain or palp is sitting up in bed - Objective Vital Signs & Weight: Vital Signs (12 hours) Temp Pulse Resp BP BP Pulse Ox 02/24/20 12:05 97.8 F 67 22 H 142/74 H 95 02/24/20 09:05 98.1 F 64 23 H 146/71 H 94 L 02/24/20 04:00 98.5 F 63 20 97/50 L 97 Weight Weight 204 lb 1 oz I&O: 02/23/20 02/24/20 02/25/20 06:59 06:59 06:59 Intake Total 1247 920 Output Total 440 Balance 807 920 Result Diagrams: 02/22/20 05:18 02/22/20 05:18 Hospitalist ROS - Medication Medications: Active Medications Generic Name Dose Route Start Last Admin Trade Name Freq PRN Reason Stop Dose Admin Acetaminophen 650 mg 02/19/20 19:13 02/23/20 18:44 Tylenol PO 650 mg Q4H PRN Administration Headache/Fever/Mild Pain (1-3) Aspirin 81 mg 02/20/20 09:00 02/24/20 08:51 Ecotrin PO 81 mg DAILY TOSHIA Administration Atorvastatin Calcium 10 mg 02/20/20 21:00 02/23/20 19:45 Lipitor PO 10 mg HS TOSHIA Administration Dexamethasone 6 mg 02/20/20 09:00 02/24/20 08:51 Decadron SLOW IVP 02/28/20 09:01 6 mg DAILY TOSHIA Administration Doxazosin Mesylate 8 mg 02/20/20 21:00 02/23/20 19:45 Cardura PO 8 mg HS TOSHIA Administration Ferrous Sulfate 325 mg 02/21/20 09:00 02/24/20 08:51 Feosol PO 325 mg DAILY TOSHIA Administration Finasteride 5 mg 02/20/20 21:00 02/23/20 19:46 Proscar PO 5 mg HS TOSHIA Administration Heparin Sodium (Porcine) 5,000 units 02/20/20 21:00 02/24/20 08:51 Heparin SC 5,000 units BID TOSHIA Administration Melatonin 3 mg 02/20/20 21:00 02/23/20 19:45 Melatonin PO 3 mg HS TOSHIA Administration Mometasone Furoate/Formoterol Fumar 2 puff 02/20/20 18:30 02/23/20 18:06 Dulera 200 Mcg/5 Mcg Inhaler INH 2 puff BID-RT TOSHIA Administration Montelukast Sodium 10 mg 02/20/20 21:00 02/23/20 19:45 Singulair PO 10 mg HS TOSHIA Administration Pantoprazole Sodium 40 mg 02/21/20 07:30 02/24/20 08:51 Protonix PO 40 mg DAILY-AC TOSHIA Administration Sodium Chloride 10 ml 02/20/20 09:00 02/24/20 08:51 Flush - Normal Saline IVF 10 ml Q12HR TOSHIA Administration - Exam General Appearance: awake alert Eye: PERRL, anicteric sclera ENT: no oropharyngeal lesions, moist mucosa Neck: supple, no JVD Heart: RRR, no murmur Respiratory: no wheezes, no rales, rhonchi Gastrointestinal: soft, non-tender, non-distended, normal bowel sounds Extremities: no cyanosis, 1+ LE edema Neurological: cranial nerve grossly intact, no focal deficits Hosp A/P (1) Acute respiratory failure with hypoxia Code(s): J96.01 - ACUTE RESPIRATORY FAILURE WITH HYPOXIA Status: Acute (2) Pneumonia due to COVID-19 virus Code(s): U07.1 - COVID-19; J12.89 - OTHER VIRAL PNEUMONIA Status: Acute (3) H/O aortic valve replacement with porcine valve Code(s): Z95.3 - PRESENCE OF XENOGENIC HEART VALVE Status: Chronic (4) COPD (chronic obstructive pulmonary disease) Status: Chronic Qualifiers: COPD type: chronic bronchitis (5) BPH (benign prostatic hyperplasia) Code(s): N40.0 - BENIGN PROSTATIC HYPERPLASIA WITHOUT LOWER URINRY TRACT SYMP Status: Chronic Qualifiers: Lower urinary tract symptom presence: symptoms absent Qualified Code(s): N40.0 - Benign prostatic hyperplasia without lower urinary tract symptoms (6) CAD (coronary artery disease) Code(s): I25.10 - ATHSCL HEART DISEASE OF [place] CORONARY ARTERY W/O ANG PCTRS Status: Chronic Qualifiers: Coronary Disease-Associated Artery/Lesion type: bypass graft [place] vs. transplanted heart: [place] heart Associated angina: without angina Qualified Code(s): I25.810 - Atherosclerosis of coronary artery bypass graft(s) without angina pectoris (7) CKD (chronic kidney disease) stage 4, GFR 15-29 ml/min Code(s): N18.4 - CHRONIC KIDNEY DISEASE, STAGE 4 (SEVERE) Status: Chronic (8) HLD (hyperlipidemia) Code(s): E78.5 - HYPERLIPIDEMIA, UNSPECIFIED Status: Chronic Qualifiers: (9) HTN (hypertension) Code(s): I10 - ESSENTIAL (PRIMARY) HYPERTENSION Status: Chronic Qualifiers: (10) History of AAA (abdominal aortic aneurysm) repair Code(s): Z98.890 - OTHER SPECIFIED POSTPROCEDURAL STATES Status: Chronic - Plan is on nasal canula, dexamethasone iv, nebs, recieved 1 u of convalescent plasma 02/20/2020 has h/o nephrectomy, now gilson/ckd, mild chf exac with diastolic dysfunction continue other meds as above to mobilize in room as tolerated d/w daughter over phone and gave full updates 02/23/2020, plan is for rehab/ swing bed to [place] [facility] if [facility] with Covid patients. hemostable He got 1 dose lasix iv on 02/20/2020 with slight worsoning of renal function. continue to monitor PT to mobilize as tolerated May dc anytime if swing bed in [place] will accept him.
[2020-02-24 13:22] LABS: Bacteria/HPF 4+ HPF (None Seen); Bilirubin Negative (Negative); Blood, Urine Negative (Negative); Clarity Turbid (Clear); Glucose, Urine (Dipstick) Normal (Negative); Ketone, Urine Negative (Negative); Leukocyte 500 Leu/uL (Negative); Nitrite Negative (Negative); Protein, Urine (Dipstick) 10 mg/dL (Neg-Trace); Specific Gravity, Urine 1.019 (1.002-1.036); Squamous Epithelial None Seen HPF (0-3); Urobilinogen Normal mg/dL (Less than 2); WBC/HPF Greater than 50 HPF (0-3); pH, Urine 5.5 (5.0-9.0)
[2020-02-24 13:35] LABS: Urine Culture Reflex Yes Yes
[2020-02-24 13:45] LABS: Anion Gap 16 mmol/L (10-20); BUN (Urea Nitrogen) 71 mg/dL (8.4-25.7); Calc. Creatinine Clearance 26 mL/min (70-130); Calcium 8.2 mg/dL (7.8-10.44); Carbon Dioxide 22 mmol/L (23-31); Chloride 106 mmol/L (98-107); Estimated GFR-MDRD 23; Glucose 153 mg/dL (83-110); Potassium 4.9 mmol/L (3.5-5.1); Sodium 139 mmol/L (136-145)
--- NOTE | 2020-02-24 17:13 | PRG ---
DATE OF SERVICE: 02/24/2020 SUBJECTIVE: I was asked to see the patient again because there was concern that he might have symptomatic urinary tract infection. Apparently, he developed some mental state changes and that prompted urinalysis and urine culture. Urinalysis was abnormal. The culture is pending at the moment. Mr. Montanez was being transferred to a swing bed, but this event above has postponed the discharge planning. Right now, he does not appear in distress. He said he is not breathing so well. He denied any dysuria and no frequency. No urinary retention. No abdominal pain. No vomiting. No back pain. OBJECTIVE: VITAL SIGNS: He has been afebrile. BP 140/70, pulse 67, and O2 saturations are ranging from 92 to 95, he is at 1.3 L nasal cannula, which is an improvement from previous when he was at 3. GENERAL: He is awake. He has hearing impairment, but he does understand questions and he follows commands properly. HEENT: Ocular movements are conjugate. LUNGS: Symmetric air entry. HEART: S1 and S2, regular rate. ABDOMEN: Soft, not distended or tender. No ascites. No bladder distention. EXTREMITIES: No joint inflammatory activity. LABORATORY DATA: His latest urinalysis with greater than 50 wbc's. White cell count is 4.0, hemoglobin 9.2, and platelets 106,000. D-dimer is 8.21. Creatinine is at 2.68, which is about the same as on admission. The CRP is down to 3.1 from admission and the ferritin is down to 143. ASSESSMENT AND DISCUSSION: Chronic obstructive lung disease, cardiomyopathy, COVID infection with requirement for high level O2 supplementation. The patient has clearly improved from his O2 requirements and now there is issue with his mental state. I do not see it markedly changed from admission and it is not necessarily true that the urinary changes are causally associated with the mental state abnormalities. In fact, Infectious Disease Society of [place] has come out with the guidelines explicitly advising against treating urinary tract findings based on mental state changes and try to find other reasons for the mental state change. In his case, the possibility of a cerebrovascular accident is significant in view of the association of COVID infection with cerebrovascular events. Job ID: [id number]
--- NOTE | 2020-02-24 18:18 | CT ---
Exam: Head CT without contrast HISTORY: Altered mental status COMPARISON: 12/03/2016 FINDINGS: Hemorrhage: No intraparenchymal hemorrhage or extra-axial hematoma. Brain parenchyma: Stable encephalomalacia and gliosis involving the posterior right temporal lobe, ri ght parietal lobe, left occipital lobe and right occipital lobe. Remainder of the cerebrum demonstrates preservation of cortical wilks-white matter differentiation. Stable lacunar infarcts invo lving the left lentiform nucleus and left henriquez radiata. Stable chronic small vessel ischemic changes of the white matter. Ventricular system: Ventricles and sulci are patent and symmetric. Calvarium: Intact. Sinuses and mastoid air cells: Adequate aeration. IMPRESSION: No acute intracranial process.
[2020-02-24] MEDS: Finasteride 5 MG TAB PO SCH (20:06)
[2020-02-24] MEDS: Atorvastatin Calcium 10 MG TAB PO SCH (20:06)
[2020-02-24] MEDS: Montelukast Sodium 10 mg Tablet PO SCH (20:06)
[2020-02-24] MEDS: Melatonin 3 MG TAB PO SCH (20:06)
[2020-02-24 23:00] LABS: #Basophils 0.1 thou/uL (0.0-0.2); #Lymphocytes 0.6 thou/uL (1.20-3.40); #Monocytes 0.3 thou/uL (0.11-0.59); #Neutrophils 3.7 thou/uL (1.40-6.50); %Basophils 1.4 % (0.0-1.0); %Eosinophils 0.1 % (0.0-10.0); %Lymphocytes 12.4 % (21.0-51.0); %Monocytes 7.3 % (0.0-10.0); %Neutrophils 78.7 % (42.0-75.0); Hemoglobin 10.7 g/dL (14.0-18.0); Mean Corpuscular HGB CONC 32.7 g/dL (32.0-36.0); Mean Corpuscular Hemoglobin 33.2 pg (27.0-31.0); Mean Platelet Volume 8.9 fL (7.4-10.4); Platelet Count 103 thou/uL (130-400); Red Blood Cell (RBC) Count 3.23 mill/uL (4.70-6.10); White Blood Cell (WBC) Count 4.7 thou/uL (4.8-10.8)
[2020-02-24 23:03] LABS: INR-International Normal Ratio 1.4; PTT 29.2 sec (22.9-36.1); Prothrombin Time 17.3 sec (12.0-14.7)
[2020-02-25] MEDS: Mometasone 200 MCG/Formoterol 5 MCG 120 PUFF INHALER INH SCH ×2 (06:43→17:56)
[2020-02-25] MEDS: Doxazosin Mesylate 4 MG TAB PO SCH ×2 (07:39→19:59)
[2020-02-25] MEDS: Heparin 5,000 UNITS/ML VIAL SC SCH ×2 (10:12→20:00)
[2020-02-25] MEDS: Dexamethasone 4 mg/ml Vial SLOW IVP SCH (10:12)
[2020-02-25] MEDS: Ferrous Sulfate 325 MG TAB PO SCH (10:12)
[2020-02-25] MEDS: Aspirin 81 mg Enteric Coated Tablet PO SCH (10:13)
--- NOTE | 2020-02-25 13:08 | PDOC.HOSPP ---
- Subjective Encounter Date: 02/25/20 Encounter Time: 10:20 Subjective: awake, responds well to verbal stimuli is wearing his nasal canula this morning ate his breakfast knows he is in the hospital in [place], wants to know when he will get dc'd to [place] swing bed he tells me he has 2 daughters and their names, his is , the current presidents name etc. - Objective Vital Signs & Weight: Vital Signs (12 hours) Temp Pulse Resp BP BP Pulse Ox 02/25/20 10:25 95 02/25/20 10:20 97.6 F 68 22 H 139/63 95 02/25/20 04:00 97.7 F 67 20 149/67 H 94 L Weight Weight 204 lb 1 oz I&O: 02/24/20 02/25/20 02/26/20 06:59 06:59 06:59 Intake Total 920 480 240 Balance 920 480 240 Result Diagrams: 02/24/20 22:40 02/24/20 13:08 Hospitalist ROS - Medication Medications: Active Medications Generic Name Dose Route Start Last Admin Trade Name Siria PRN Reason Stop Dose Admin Acetaminophen 650 mg 02/19/20 19:13 02/23/20 18:44 Tylenol PO 650 mg Q4H PRN Administration Headache/Fever/Mild Pain (1-3) Aspirin 81 mg 02/20/20 09:00 02/25/20 10:13 Ecotrin PO 81 mg DAILY TOSHIA Administration Atorvastatin Calcium 10 mg 02/20/20 21:00 02/24/20 20:06 Lipitor PO 10 mg HS TOSHIA Administration Dexamethasone 6 mg 02/20/20 09:00 02/25/20 10:12 Decadron SLOW IVP 02/28/20 09:01 6 mg DAILY TOSHIA Administration Doxazosin Mesylate 8 mg 02/20/20 21:00 02/25/20 07:39 Cardura PO Not Given HS TOSHIA Ferrous Sulfate 325 mg 02/21/20 09:00 02/25/20 10:12 Feosol PO 325 mg DAILY TOSHIA Administration Finasteride 5 mg 02/20/20 21:00 02/24/20 20:06 Proscar PO 5 mg HS TOSHIA Administration Heparin Sodium (Porcine) 5,000 units 02/20/20 21:00 02/25/20 10:12 Heparin SC 5,000 units BID TOSHIA Administration Melatonin 3 mg 02/20/20 21:00 02/24/20 20:06 Melatonin PO 3 mg HS TOSHIA Administration Mometasone Furoate/Formoterol Fumar 2 puff 02/20/20 18:30 02/25/20 06:43 Dulera 200 Mcg/5 Mcg Inhaler INH 2 puff BID-RT TOSHIA Administration Montelukast Sodium 10 mg 02/20/20 21:00 02/24/20 20:06 Singulair PO 10 mg HS TOSHIA Administration Pantoprazole Sodium 40 mg 02/21/20 07:30 02/25/20 10:13 Protonix PO 40 mg DAILY-AC TOSHIA Administration Sodium Chloride 10 ml 02/20/20 09:00 02/25/20 10:13 Flush - Normal Saline IVF 10 ml Q12HR TOSHIA Administration - Exam General Appearance: awake alert Eye: PERRL, anicteric sclera ENT: no oropharyngeal lesions, moist mucosa Neck: supple, no JVD Heart: RRR, no murmur Respiratory: no wheezes, no rales Gastrointestinal: soft, non-tender, non-distended, normal bowel sounds Extremities: no cyanosis, 1+ LE edema Neurological: cranial nerve grossly intact, no focal deficits Hosp A/P (1) Acute respiratory failure with hypoxia Code(s): J96.01 - ACUTE RESPIRATORY FAILURE WITH HYPOXIA Status: Acute (2) Pneumonia due to COVID-19 virus Code(s): U07.1 - COVID-19; J12.89 - OTHER VIRAL PNEUMONIA Status: Acute (3) H/O aortic valve replacement with porcine valve Code(s): Z95.3 - PRESENCE OF XENOGENIC HEART VALVE Status: Chronic (4) COPD (chronic obstructive pulmonary disease) Status: Chronic Qualifiers: COPD type: chronic bronchitis (5) BPH (benign prostatic hyperplasia) Code(s): N40.0 - BENIGN PROSTATIC HYPERPLASIA WITHOUT LOWER URINRY TRACT SYMP Status: Chronic Qualifiers: Lower urinary tract symptom presence: symptoms absent Qualified Code(s): N40.0 - Benign prostatic hyperplasia without lower urinary tract symptoms (6) CAD (coronary artery disease) Code(s): I25.10 - ATHSCL HEART DISEASE OF [place] CORONARY ARTERY W/O ANG PCTRS Status: Chronic Qualifiers: Coronary Disease-Associated Artery/Lesion type: bypass graft [place] vs. transplanted heart: [place] heart Associated angina: without angina Qualified Code(s): I25.810 - Atherosclerosis of coronary artery bypass graft(s) without angina pectoris (7) CKD (chronic kidney disease) stage 4, GFR 15-29 ml/min Code(s): N18.4 - CHRONIC KIDNEY DISEASE, STAGE 4 (SEVERE) Status: Chronic (8) HLD (hyperlipidemia) Code(s): E78.5 - HYPERLIPIDEMIA, UNSPECIFIED Status: Chronic Qualifiers: (9) HTN (hypertension) Code(s): I10 - ESSENTIAL (PRIMARY) HYPERTENSION Status: Chronic Qualifiers: (10) History of AAA (abdominal aortic aneurysm) repair Code(s): Z98.890 - OTHER SPECIFIED POSTPROCEDURAL STATES Status: Chronic - Plan is on nasal canula, dexamethasone iv, nebs, recieved 1 u of convalescent plasma 02/20/2020 has h/o nephrectomy, now gilson/ckd stabilizing, mild chf exac with diastolic dysfunction resolved continue other meds as above to mobilize in room as tolerated d/w daughter over phone and gave full updates 02/23/2020 plan is to swing bed in [place], I have given updates to who has accepted him. He got 1 dose lasix iv on 02/20/2020 with slight worsoning of renal function, will continue to monitor PT to mobilize as tolerated, has ambulated around 40ft with PT here His DC was held due to family appealing against dc with insurance, await final decision He is hemodynamically stable for dc. has findings of uti on urinalysis with prelim cultures growing e.coli but is not complaining of any symptoms related to passing urine his prior urine culture has grown esbl +ve e.coli in the past and now question becomes should we treat him if he is asymptomatic for it, await opinion once cultures are back. His CT brain done yesterday did not show any ac infarcts or bleed His cognitive status appears to be the same as I have seen him from last 6 days.
--- NOTE | 2020-02-25 14:22 | PRG ---
DATE OF SERVICE: 02/25/2020 SUBJECTIVE: Mr. Montanez is awake. He is oriented, follows commands. He denies any chest pain. Denies any urinary symptoms. OBJECTIVE: VITAL SIGNS: He has been afebrile and has 95% O2 sats at 2 L nasal cannula. LUNGS: Clear to auscultation and percussion. HEART: S1 and S2. Regular rate. ABDOMEN: Soft. No bladder distention. LABORATORY DATA: White cell count has not been repeated. Creatinine 2.68. Last abdomen and pelvis CTs from many years ago. ASSESSMENT AND DISCUSSION: 1. Chronic obstructive pulmonary disease. 2. Cardiomyopathy. 3. Prior episode of urosepsis due to extended-spectrum beta-lactamase Escherichia coli. 4. COVID pneumonia with moderate to severe course, now with marked improvement. His mental status is back to baseline, but he has probably the same organism that had been identified in the past in his urine and it is going to be hard to argue against treating it or eventually will need a stone protocol CT to evaluate his urine tract, and once we get the final results of susceptibility, then probably we will need to treat him with ertapenem or meropenem adjusted for renal function, probably meropenem, which is more affordable and has the same results. We will talk to the daughter about it. Job ID: [id number] MTDD
[2020-02-25] MEDS: Atorvastatin Calcium 10 MG TAB PO SCH (20:00)
[2020-02-25] MEDS: Melatonin 3 MG TAB PO SCH (20:00)
[2020-02-25] MEDS: Meropenem 500 MG in Sodium Chloride 0.9% 100 ML IVPB SCH (20:00)
[2020-02-25] MEDS: Finasteride 5 MG TAB PO SCH (20:00)
[2020-02-25] MEDS: Montelukast Sodium 10 mg Tablet PO SCH (20:00)
[2020-02-25] MEDS ORDERED: Melatonin 3 MG TAB PO SCH (23:45)
[2020-02-26] MEDS: Mometasone 200 MCG/Formoterol 5 MCG 120 PUFF INHALER INH SCH ×2 (05:37→16:50)
[2020-02-26] MEDS: Aspirin 81 mg Enteric Coated Tablet PO SCH (08:13)
[2020-02-26] MEDS: Dexamethasone 4 mg/ml Vial SLOW IVP SCH (08:13)
[2020-02-26] MEDS: Ferrous Sulfate 325 MG TAB PO SCH (08:13)
[2020-02-26] MEDS: Meropenem 500 MG in Sodium Chloride 0.9% 100 ML IVPB SCH ×2 (08:14→19:57)
[2020-02-26] MEDS: Heparin 5,000 UNITS/ML VIAL SC SCH ×2 (08:14→19:56)
--- NOTE | 2020-02-26 12:15 | PDOC.HOSPP ---
- Subjective Encounter Date: 02/26/20 Encounter Time: 09:40 Subjective: awake, oriented well no abd pain, nausea or chest pain couldn't sleep well, wants something for sleep tonight is comfortable on nasal canula - Objective Vital Signs & Weight: Vital Signs (12 hours) Temp Pulse Resp BP BP Pulse Ox 02/26/20 08:30 94 L 02/26/20 08:25 98.3 F 70 22 H 139/73 94 L 02/26/20 05:37 82 20 93 L 02/26/20 04:22 98.4 F 81 20 159/86 H 95 Weight Weight 204 lb 11.2 oz I&O: 02/25/20 02/26/20 02/27/20 06:59 06:59 06:59 Intake Total 480 2019 120 Balance 480 2019 120 Result Diagrams: 02/24/20 22:40 02/24/20 13:08 Hospitalist ROS - Medication Medications: Active Medications Generic Name Dose Route Start Last Admin Trade Name Freq PRN Reason Stop Dose Admin Acetaminophen 650 mg 02/19/20 19:13 02/23/20 18:44 Tylenol PO 650 mg Q4H PRN Administration Headache/Fever/Mild Pain (1-3) Aspirin 81 mg 02/20/20 09:00 02/26/20 08:13 Ecotrin PO 81 mg DAILY TOSHIA Administration Atorvastatin Calcium 10 mg 02/20/20 21:00 02/25/20 20:00 Lipitor PO 10 mg HS TOSHIA Administration Dexamethasone 6 mg 02/20/20 09:00 02/26/20 08:13 Decadron SLOW IVP 02/28/20 09:01 6 mg DAILY TOSHIA Administration Doxazosin Mesylate 8 mg 02/20/20 21:00 02/25/20 19:59 Cardura PO 8 mg HS TOSHIA Administration Ferrous Sulfate 325 mg 02/21/20 09:00 02/26/20 08:13 Feosol PO 325 mg DAILY TOSHIA Administration Finasteride 5 mg 02/20/20 21:00 02/25/20 20:00 Proscar PO 5 mg HS TOSHIA Administration Heparin Sodium (Porcine) 5,000 units 02/20/20 21:00 02/26/20 08:14 Heparin SC 5,000 units BID TOSHIA Administration Meropenem 500 mg/ Sodium 100 mls @ 200 mls/hr 02/25/20 21:00 02/26/20 08:14 Chloride IVPB 100 mls Q12HR TOSHIA Administration Mometasone Furoate/Formoterol Fumar 2 puff 02/20/20 18:30 02/26/20 05:37 Dulera 200 Mcg/5 Mcg Inhaler INH 2 puff BID-RT TOSHIA Administration Montelukast Sodium 10 mg 02/20/20 21:00 02/25/20 20:00 Singulair PO 10 mg HS TOSHIA Administration Pantoprazole Sodium 40 mg 02/21/20 07:30 02/26/20 08:13 Protonix PO 40 mg DAILY-AC TOSHIA Administration Sodium Chloride 10 ml 02/20/20 09:00 02/26/20 08:14 Flush - Normal Saline IVF 10 ml Q12HR TOSHIA Administration - Exam General Appearance: awake alert Eye: PERRL, anicteric sclera ENT: no oropharyngeal lesions, moist mucosa Neck: supple, no JVD Heart: no murmur, no gallops Respiratory: no wheezes, no rales, rhonchi Gastrointestinal: soft, non-tender, non-distended, normal bowel sounds Extremities: no cyanosis, 1+ LE edema Neurological: cranial nerve grossly intact, no focal deficits Hosp A/P (1) Acute respiratory failure with hypoxia Code(s): J96.01 - ACUTE RESPIRATORY FAILURE WITH HYPOXIA Status: Acute (2) Pneumonia due to COVID-19 virus Code(s): U07.1 - COVID-19; J12.89 - OTHER VIRAL PNEUMONIA Status: Acute (3) H/O aortic valve replacement with porcine valve Code(s): Z95.3 - PRESENCE OF XENOGENIC HEART VALVE Status: Chronic (4) COPD (chronic obstructive pulmonary disease) Status: Chronic Qualifiers: COPD type: chronic bronchitis (5) BPH (benign prostatic hyperplasia) Code(s): N40.0 - BENIGN PROSTATIC HYPERPLASIA WITHOUT LOWER URINRY TRACT SYMP Status: Chronic Qualifiers: Lower urinary tract symptom presence: symptoms absent Qualified Code(s): N40.0 - Benign prostatic hyperplasia without lower urinary tract symptoms (6) CAD (coronary artery disease) Code(s): I25.10 - ATHSCL HEART DISEASE OF [place] CORONARY ARTERY W/O ANG PCTRS Status: Chronic Qualifiers: Coronary Disease-Associated Artery/Lesion type: bypass graft [place] vs. transplanted heart: [place] heart Associated angina: without angina Qualified Code(s): I25.810 - Atherosclerosis of coronary artery bypass graft(s) without angina pectoris (7) CKD (chronic kidney disease) stage 4, GFR 15-29 ml/min Code(s): N18.4 - CHRONIC KIDNEY DISEASE, STAGE 4 (SEVERE) Status: Chronic (8) HLD (hyperlipidemia) Code(s): E78.5 - HYPERLIPIDEMIA, UNSPECIFIED Status: Chronic Qualifiers: (9) HTN (hypertension) Code(s): I10 - ESSENTIAL (PRIMARY) HYPERTENSION Status: Chronic Qualifiers: (10) History of AAA (abdominal aortic aneurysm) repair Code(s): Z98.890 - OTHER SPECIFIED POSTPROCEDURAL STATES Status: Chronic - Plan is on nasal canula, dexamethasone iv, nebs, recieved 1 u of convalescent plasma 02/20/2020 has h/o nephrectomy, now gilson/ckd stabilizing, mild chf exac with diastolic dysfunction resolved continue other meds as above to mobilize in room as tolerated d/w daughter over phone and gave full updates 02/23/2020 plan is to swing bed in [place], I have given updates to who has accepted him. He got 1 dose lasix iv on 02/20/2020 with slight worsoning of renal function, will continue to monitor PT to mobilize as tolerated, has ambulated around 40ft with PT here His DC was held due to family appealing against dc with insurance, await final decision He is hemodynamically stable for dc. has findings of uti on urinalysis with cultures growing multidrug resistant e.coli but is not complaining of any symptoms related to passing urine his prior urine culture has grown esbl +ve e.coli in the past. His CT brain did not show any ac infarcts or bleed His cognitive status appears to be the same as I have seen him from last 7 days. He has been started on meropenem renal dosing for uti by .
[2020-02-26] MEDS: Atorvastatin Calcium 10 MG TAB PO SCH (19:56)
[2020-02-26] MEDS: Finasteride 5 MG TAB PO SCH (19:56)
[2020-02-26] MEDS: Doxazosin Mesylate 4 MG TAB PO SCH (19:56)
[2020-02-26] MEDS: Montelukast Sodium 10 mg Tablet PO SCH (20:36)
[2020-02-26] MEDS ORDERED: Melatonin 3 MG TAB PO SCH (21:00)
[2020-02-27] MEDS: Mometasone 200 MCG/Formoterol 5 MCG 120 PUFF INHALER INH SCH (06:13)
[2020-02-27] MEDS: Aspirin 81 mg Enteric Coated Tablet PO SCH (09:07)
[2020-02-27] MEDS: Dexamethasone 4 mg/ml Vial SLOW IVP SCH (09:07)
[2020-02-27] MEDS: Ferrous Sulfate 325 MG TAB PO SCH (09:08)
[2020-02-27] MEDS: Heparin 5,000 UNITS/ML VIAL SC SCH (09:08)
[2020-02-27] MEDS: Meropenem 500 MG in Sodium Chloride 0.9% 100 ML IVPB SCH (10:32)
[2020-02-27 13:58] VITALS: BP 176/86; TEMP 98.1
--- NOTE | 2020-02-28 14:05 | DIS ---
DATE OF ADMISSION: 02/19/2020 DATE OF DISCHARGE: 02/27/2020 DISCHARGE DISPOSITION: To swing bed at [facility]. PRIMARY DISCHARGE DIAGNOSES: 1. COVID-19 pneumonia with acute hypoxic respiratory failure. 2. Deconditioning. 3. History of porcine aortic valve. 4. Chronic obstructive pulmonary disease. 5. Benign prostatic hypertrophy. 6. Coronary artery disease. 7. 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 8. Dyslipidemia. 9. Hypertension. 10. History of abdominal aortic aneurysm repair. Mild chf exacerbation with diastolic dysfunction. PROCEDURES DONE DURING HOSPITALIZATION: The patient has had a chest x-ray done on the day of admission, which showed findings of CHF with interstitial infiltrate suggestive of COVID-[address] brain done on 02/24/2020 showed no acute intracranial process. Urine culture drawn on 02/24/2020 grew E coli, which was multi-drug resistant and sensitive to cefoxitin, amikacin, meropenem, Zosyn. White count of 4.7, H and H 10 and 32, platelet count 103, MCV 102, PT/INR 17.3/1.4, PTT 29. D-dimer was 8.3 on the day of admission. Discharge BUN and creatinine on 02/24/2020 was 71 and 2.6. Admitting BUN and creatinine was 36 and 2.6. Troponin I 0.30, CK-MB 8.1, CK levels 103, albumin 3.1. CRP 14.7, ferritin 227. COVID-19 PCR was positive on 02/19/2020. DISCHARGE MEDICATIONS: 1. Aspirin 81 mg p.o. daily. 2. Calcium 600 mg p.o. twice daily. 3. Vitamin B12 1000 mcg once every 2 months. 4. Doxazosin 8 mg p.o. at bedtime. 5. Ertapenem 500 mg IV daily for another 5 days. 6. Ferrous sulfate 325 mg p.o. daily. 7. Proscar 5 mg p.o. at bedtime. 8. DuoNebs 3 times daily. 9. Melatonin 4 mg p.o. at bedtime. 10. Singulair 10 mg p.o. at bedtime. 11. Protonix 40 mg p.o. daily. 12. Simvastatin 20 mg p.o. at bedtime. 13. Symbicort inhaler 160/4.5 mcg 2 puffs twice daily. 14. Dexamethasone 6 mg p.o. daily for another 8 days. ALLERGIES: TETANUS TOXOID. INPATIENT CONSULT: Dr. Leiva for Infectious Disease and Dr. Hillman for Cardiology. DISCHARGE PLAN: The patient is being discharged to [facility] swing [facility] for further recuperation. BRIEF COURSE DURING HOSPITALIZATION: The patient initially got admitted on the with complaints of shortness of breath. He was a resident of assisted living facility at [facility] in [place]. The patient's COVID-19 PCR was positive and he was admitted to the COVID Unit for acute respiratory failure with hypoxia, needing 4 L of oxygen by nasal cannula. He also had mild CHF exacerbation. He was placed on dexamethasone 6 mg daily along with DuoNebs. He has had consultation with Dr. Leiva for Infectious Disease. The patient received convalescent plasma. He was not a candidate for remdesivir due to CKD stage 3-4 and having solitary kidney. He responded well to above measures. The patient has had physical therapy consultation and was ambulating around 20 feet in the room. In view of his age of 84, underlying medical conditions, and current COVID pneumonia, the patient is being transferred to swing [facility] [place] for further recuperation and physical therapy services. On the , the patient apparently called his daughter multiple times and she was worried that he was going into altered mental state and suspected that he might have urinary tract infection. Per family request, a urinalysis was done, which grew E coli, which is multidrug resistant. He has had similar cultures 2 years back. His cognitive function although remained the same all through his hospitalization. He interacts well and knows where he is along with naming his children and being a . He has been tolerating oral solid diet. The patient needs to mobilize more at the swing bed prior to going to his assisted living facility in [place]. I have given complete updates to Dr. Loco, who will be the accepting physician at [facility]. Please note, I have seen and examined the patient on the day of discharge. A total of 35 minutes was spent on discharge plan. was given a dose of Lasix 40mg iv for pulmonary vascular congestion and ac respiratory failure which has caused Mild JACK secondary to that on top of his ckd and solitary kidney. His renal function is stabilizing at the time of discharge and needs close monitoring on discharge. Job ID: [id number] MTDD
== END 2020-02-27 12:06 | disposition swing bed (61) | DRG 177 ==
LOC: ERS 13:55 → 2SW 16:44
PROVIDERS: ADMIT Internal Medicine; ATTEND Internal Medicine
PROC: 8E0ZXY6 Isolation (ICD-10-PCS; principal; 2020-02-19)
DX: U07.1 COVID-19 (principal); J12.89 Other viral pneumonia; J96.01 Acute respiratory failure with hypoxia; I50.33 Acute on chronic diastolic (congestive) heart failure; J44.0 Chronic obstructive pulmonary disease with (acute) lower respiratory infection; I13.0 Hypertensive heart and chronic kidney disease with heart failure and stage 1 through stage 4 chronic kidney disease, or unspecified chronic kidney disease; N18.4 Chronic kidney disease, stage 4 (severe); I25.810 Atherosclerosis of coronary artery bypass graft(s) without angina pectoris; I42.9 Cardiomyopathy, unspecified; N39.0 Urinary tract infection, site not specified; Z16.12 Extended spectrum beta lactamase (ESBL) resistance; M19.90 Unspecified osteoarthritis, unspecified site; N40.0 Benign prostatic hyperplasia without lower urinary tract symptoms; D50.9 Iron deficiency anemia, unspecified; E78.5 Hyperlipidemia, unspecified; Z96.651 Presence of right artificial knee joint; B96.20 Unspecified Escherichia coli [E. coli] as the cause of diseases classified elsewhere; Z95.1 Presence of aortocoronary bypass graft; Z87.891 Personal history of nicotine dependence; Z88.7 Allergy status to serum and vaccine; Z79.899 Other long term (current) drug therapy; Z79.82 Long term (current) use of aspirin; Z95.2 Presence of prosthetic heart valve; Z79.51 Long term (current) use of inhaled steroids
CPT/HCPCS: 36415; 36430; 36600; 70450; 71045; 80048; 80053; 81001; 82550; 82553; 82728; 82805; 83605; 83880; 84484; 85025; 85379; 85610; 85730; 86140; 86850; 86900; 86901; 87077; 87086; 87186; 87635; 93005; 94664; J0456; J1100; J1644; J1940; J2185; J3490; J7050; U0003